=== PATIENT | male | born 1975 | race Caucasian/White ===

== ENCOUNTER 2017-12-04 03:49 | Emergency (ER) | payer BC ==
[2017-12-04 03:56] VITALS: RESP 16
--- NOTE | 2017-12-04 05:01 | ED ---
Skin/Abscess/FB HPI - General Chief complaint: Skin/Abscess/Foreign Body Stated complaint: Lump on neck Time Seen by Provider: 12/04/17 04:41 Source: patient Mode of arrival: ambulatory Limitations: no limitations - History of Present Illness complaint: abscess/boil Onset/Timin -: days(s) Tetanus Up to Date: no Location: head Severity: moderate Quality: dull Consistency: constant Improves with: none Worsens with: palpation Context: none Associated symptoms: denies other symptoms - Related Data Previous Rx's Medication Instructions Recorded Sulfamethox-Tmp 800-160Mg [Bactrim 2 each PO Q12HR #28 tab 12/04/17 Ds] Allergies Allergy/AdvReac Type Severity Reaction Status Date / Time No Known Allergies Allergy Verified 12/04/17 03:56 Review of Systems ROS Statement: Those systems with pertinent positive or pertinent negative responses have been documented in the HPI. ROS Other: All systems not noted in ROS Statement are negative. Constitutional: Denies: fever, chills Cardiovascular: Denies: palpitations Gastrointestinal: Denies: nausea, vomiting Skin: Reports: lesions Neurological: Denies: headache Hematological/Lymphatic: Denies: easy bleeding Past Medical History Past Medical History: No Reported History History of Any Multi-Drug Resistant Organisms: None Reported Past Surgical History: No Surgical Hx Reported Past Psychological History: No Psychological Hx Reported Smoking Status: Never smoker Past Alcohol Use History: Occasional Past Drug Use History: None Reported General Exam Limitations: no limitations General appearance: alert, in no apparent distress Neck exam: Present: other (Patient has approximately 3 cm diameter area of erythema and induration located at the base of the occipital scalp and the joint of the neck.) Course Vital Signs 12/04/17 03:51 Temperature 98.3 F Pulse Rate 69 Respiratory 16 Rate Blood Pressure 167/96 O2 Sat by Pulse 99 Oximetry Disposition Clinical Impression: Cellulitis Disposition: HOME SELF-CARE Condition: Good Instructions: Cellulitis (ED) Prescriptions: Sulfamethox-Tmp 800-160Mg [Bactrim Ds] 2 each PO Q12HR #28 tab Is patient prescribed a controlled substance at d/c from ED?: No Referrals: Gideon Winters DO [Primary Care Provider] - 1-2 days Arnulfo Stoll MD [STAFF PHYSICIAN] - 1-2 days
[2017-12-04] MEDS ORDERED: DIPH,PERTUS(ACELL)TETVAC-LF 0.5 ML VIAL IM ONE (05:27)
[2017-12-04] MEDS ORDERED: SULFAMETHOX-TMP 800-160MG 1 EACH TAB PO STA (05:48)
[2017-12-04 06:01] VITALS: BP 140/75; PULSE 68; TEMP 98
== END 2017-12-04 06:02 | disposition home or self-care (01) ==
LOC: EC 03:49
DX: L03.811 Cellulitis of head [any part, except face] (principal); L03.221 Cellulitis of neck; Z23 Encounter for immunization
CPT/HCPCS: 90471; 90715; 99283